=== PATIENT | male | born 2005 | race Two or more races ===

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

== ENCOUNTER 2025-08-19 19:02 | Emergency (ER) | payer OTHER ==
[~2025-08-19] VITALS: Ht 167.6 cm; Wt 113.4 kg
[2025-08-19] MEDS ORDERED: GUAI5SYR PO (20:28)
[2025-08-19] MEDS ORDERED: ALBU18HF2 INH (20:30)
[2025-08-19 20:39] VITALS: BP 133/84; TEMP 98.8; O2SAT 99
== END 2025-08-19 20:39 | disposition home or self-care (01) ==
LOC: ER 19:08
DX: R05.9 Cough, unspecified (principal); R06.2 Wheezing
CPT/HCPCS: 71045-TC